=== PATIENT | male | born 1980 | race Caucasian/White ===

== ENCOUNTER 2017-03-19 06:42 | Observation (INO) | payer SELFPAY ==
[2017-03-19] MEDS: NS 1,000 ML IV ×4 (07:42→22:00)
[2017-03-19] MEDS: ONDANSETRON 4MG/2ML VIAL (J2405) IV (07:42)
[2017-03-19 08:01] LABS: BASO % 0.2 % (0.0-1.0); HEMATOCRIT 49.3 % (42.0-52.0); HEMOGLOBIN 16.9 g/dl (14.0-18.0); IMMATURE GRANULOCYTE % 0.4 % (0-0); LYMPH # 1.3 10^3/uL (1.5-4.5); LYMPH % 13.6 % (24.0-44.0); MEAN CORPUSCULAR HEMOGLOBIN 27.2 pg (27.0-33.0); MEAN CORPUSCULAR HGB CONC 34.3 g/dl (32.0-36.5); MEAN CORPUSCULAR VOLUME 79.4 fl (80.0-96.0); MONO # 1.1 10^3/uL (0.0-0.8); MONO % 10.9 % (0.0-5.0); NEUTROPHILS # 7.2 10^3/uL (1.8-7.7); NEUTROPHILS % 74.9 % (36.0-66.0); PLATELET COUNT, AUTOMATED 242 10^3/uL (150-450); RED BLOOD COUNT 6.21 10^6/uL (4.30-6.10); RED CELL DISTRIBUTION WIDTH 13.6 % (11.5-14.5); WHITE BLOOD COUNT 9.6 10^3/uL (4.0-10.0)
[2017-03-19 08:04] LABS: INR 0.99; PROTHROMBIN TIME 13.2 SECONDS (12.4-14.5)
[2017-03-19 08:05] LABS: PARTIAL THROMBOPLASTIN TIME 27.4 SECONDS (26.8-37.9)
[2017-03-19 08:12] LABS: ALBUMIN 4.5 GM/DL (3.2-5.2); ALBUMIN/GLOBULIN RATIO 0.94 (1.00-1.93); ALKALINE PHOSPHATASE 116 U/L (45-117); ALT/SGPT 63 U/L (12-78); ANION GAP 14 MEQ/L (8-16); AST/SGOT 62 U/L (7-37); BILIRUBIN,DIRECT 0.1 MG/DL (0.0-0.2); BILIRUBIN,TOTAL 0.5 MG/DL (0.2-1.0); BLOOD UREA NITROGEN 26 MG/DL (7-18); CALCIUM LEVEL 9.7 MG/DL (8.5-10.1); CARBON DIOXIDE LEVEL 20 MEQ/L (21-32); CHLORIDE LEVEL 105 MEQ/L (98-107); CREATININE FOR GFR 1.73 MG/DL (0.70-1.30); GLOMERULAR FILTRATION RATE 47.6 (>60); GLUCOSE, FASTING 147 MG/DL (70-100); LIPASE 122 U/L (73-393); POTASSIUM SERUM 3.8 MEQ/L (3.5-5.1); SODIUM LEVEL 139 MEQ/L (136-145); TOTAL PROTEIN 9.3 GM/DL (6.4-8.2)
[2017-03-19] MEDS: PROMETHAZINE INJ 25 MG/ML VIAL (J2550) IV (08:15)
[2017-03-19] MEDS: PANTOPRAZOLE 40MG INJ (PROTONIX) (C9113) IV (08:19)
[2017-03-19 08:31] LABS: LACTIC ACID SEPSIS PROTOCOL 2.8 MMOL/L (0.4-2.0)
[2017-03-19 10:02] LABS: ANION GAP 6 MEQ/L (8-16); BLOOD UREA NITROGEN 25 MG/DL (7-18); CALCIUM LEVEL 8.5 MG/DL (8.5-10.1); CARBON DIOXIDE LEVEL 26 MEQ/L (21-32); CHLORIDE LEVEL 110 MEQ/L (98-107); CREATININE FOR GFR 1.56 MG/DL (0.70-1.30); GLOMERULAR FILTRATION RATE 53.6 (>60); GLUCOSE, FASTING 115 MG/DL (70-100); POTASSIUM SERUM 4.3 MEQ/L (3.5-5.1); SODIUM LEVEL 142 MEQ/L (136-145)
[2017-03-19] MEDS ORDERED: ONDANSETRON 4MG/2ML VIAL (J2405) IV (11:45)
[2017-03-19] MEDS ORDERED: ACETAMINOPHEN TAB 650MG DOSE (2X325MG) PO (11:45)
[2017-03-19 13:20] LABS: ESTIMATED AVERAGE GLUCOSE 117 MG/DL (60-110); HEMOGLOBIN A1c 5.7 %
[2017-03-19] MEDS: HEPARIN SOD (PORCINE) 5000 UNITS/ML VIAL SC ×2 (15:19→22:00)
[2017-03-19] MEDS: OSELTAMIVIR PHOSPHATE 30MG CAPSULE PO (21:07)
[2017-03-20 06:00] LABS: HEMATOCRIT 40.6 % (42.0-52.0); MEAN CORPUSCULAR HEMOGLOBIN 27.3 pg (27.0-33.0); MEAN CORPUSCULAR HGB CONC 33.3 g/dl (32.0-36.5); PLATELET COUNT, AUTOMATED 165 10^3/uL (150-450); RED BLOOD COUNT 4.95 10^6/uL (4.30-6.10); WHITE BLOOD COUNT 5.3 10^3/uL (4.0-10.0)
[2017-03-20] MEDS: HEPARIN SOD (PORCINE) 5000 UNITS/ML VIAL SC ×3 (06:00→21:58)
[2017-03-20 06:15] LABS: HEMOGLOBIN 13.5 g/dl (14.0-18.0)
[2017-03-20 06:27] LABS: ALBUMIN 3.4 GM/DL (3.2-5.2); ALBUMIN/GLOBULIN RATIO 0.94 (1.00-1.93); ALKALINE PHOSPHATASE 81 U/L (45-117); ALT/SGPT 43 U/L (12-78); ANION GAP 6 MEQ/L (8-16); AST/SGOT 39 U/L (7-37); BILIRUBIN,TOTAL 0.3 MG/DL (0.2-1.0); BLOOD UREA NITROGEN 19 MG/DL (7-18); CALCIUM LEVEL 8.3 MG/DL (8.5-10.1); CARBON DIOXIDE LEVEL 27 MEQ/L (21-32); CHLORIDE LEVEL 109 MEQ/L (98-107); CREATININE FOR GFR 1.49 MG/DL (0.70-1.30); GLOMERULAR FILTRATION RATE 56.5 (>60); GLUCOSE, FASTING 118 MG/DL (70-100); MAGNESIUM LEVEL 2.2 MG/DL (1.8-2.4); POTASSIUM SERUM 3.8 MEQ/L (3.5-5.1); SODIUM LEVEL 142 MEQ/L (136-145)
[2017-03-20] MEDS: OSELTAMIVIR PHOSPHATE 30MG CAPSULE PO ×2 (08:12→21:58)
[2017-03-21] MEDS: HEPARIN SOD (PORCINE) 5000 UNITS/ML VIAL SC (05:37)
[2017-03-21 08:20] LABS: HEMATOCRIT 39.6 % (42.0-52.0); HEMOGLOBIN 13.2 g/dl (14.0-18.0); MEAN CORPUSCULAR HEMOGLOBIN 27.1 pg (27.0-33.0); MEAN CORPUSCULAR HGB CONC 33.3 g/dl (32.0-36.5); MEAN CORPUSCULAR VOLUME 81.3 fl (80.0-96.0); PLATELET COUNT, AUTOMATED 148 10^3/uL (150-450); RED BLOOD COUNT 4.87 10^6/uL (4.30-6.10); RED CELL DISTRIBUTION WIDTH 13.6 % (11.5-14.5); WHITE BLOOD COUNT 5.3 10^3/uL (4.0-10.0)
[2017-03-21 08:44] LABS: ANION GAP 8 MEQ/L (8-16); BLOOD UREA NITROGEN 18 MG/DL (7-18); CALCIUM LEVEL 8.3 MG/DL (8.5-10.1); CARBON DIOXIDE LEVEL 27 MEQ/L (21-32); CHLORIDE LEVEL 105 MEQ/L (98-107); CREATININE FOR GFR 1.33 MG/DL (0.70-1.30); GLOMERULAR FILTRATION RATE > 60.0 (>60); GLUCOSE, FASTING 95 MG/DL (70-100); POTASSIUM SERUM 3.9 MEQ/L (3.5-5.1); SODIUM LEVEL 140 MEQ/L (136-145)
[2017-03-21] MEDS: OSELTAMIVIR PHOSPHATE 30MG CAPSULE PO (09:15)
== END 2017-03-21 11:43 | disposition home or self-care (01) ==
LOC: M ED 06:42 → M ED INP 11:38 → M MSPAV 14:53
DX: N17.9 Acute kidney failure, unspecified (principal); R79.89 Other specified abnormal findings of blood chemistry; J11.1 Influenza due to unidentified influenza virus with other respiratory manifestations; E87.2 Acidosis
CPT/HCPCS: C9113